=== PATIENT | female | born 1955 | race African-American/Black ===

== ENCOUNTER 2017-01-31 10:08 | Emergency (ER) | payer MEDICAID ==
[2016-04-20 12:10] VITALS: BMI 34.4
[~2017-01-31 10:08] MED LIST: ASPIRIN81 MG PO; CATAPRES0.2 MG PO; COREG12.5 MG PO; COREG25 MG PO; HALDOL5 MG PO; HYDROCHLOROTHIA25 MG GT; HYDROCODONE-APA1 TAB PO; INVEGA6 MG/BLIST PO; ISOSORBIDE MONO30 M1 PO; METOPROLOL TART50 MG PO; NORVASC5 MG PO; PLAVIX75 MG PO; PRINIVIL20 MG PO; SINEQUAN100 MG PO; SONATA5 MG PO; VOLTAREN100 MG PO; WELLBUTRIN100 MG PO; XANAX2 MG PO; ZANTAC150 MG PO
== END 2017-01-31 12:00 | disposition home or self-care (01) ==
LOC: D.ER 10:08
DX: S39.012A Strain of muscle, fascia and tendon of lower back, initial encounter (principal); W19.XXXA Unspecified fall, initial encounter; Y93.89 Activity, other specified; Y92.89 Other specified places as the place of occurrence of the external cause; F31.9 Bipolar disorder, unspecified; I10 Essential (primary) hypertension; Z86.73 Personal history of transient ischemic attack (TIA), and cerebral infarction without residual deficits; C64.9 Malignant neoplasm of unspecified kidney, except renal pelvis; D35.2 Benign neoplasm of pituitary gland; M06.9 Rheumatoid arthritis, unspecified; R00.0 Tachycardia, unspecified

== ENCOUNTER 2017-03-02 13:28 | Emergency (ER) | payer MEDICAID ==
[2016-04-20 12:10] VITALS: BMI 34.4
[2017-03-02 14:58] LABS: BASOPHILS 0.3 % (0-2); EOSINOPHILS 5.5 % (0-7); HEMATOCRIT 39.7 % (36.0-48.0); IMMATURE GRANULOCYTES 0.2 % (0-5); MCH 30.4 pg (26.0-34.0); MCHC 32.7 g/dL (31.0-37.0); MEAN PLATELET VOLUME 9.6 fL (7.4-10.4); MONOCYTES 4.9 % (2-11); NEUTROPHILS 45.1 % (40-80); PLATELET COUNT 273 10x3/uL (130-400); RBC 4.27 10x6/uL (4.00-5.40); RDW 13.1 % (11.5-14.5); WBC 5.9 10x3/uL (4.8-10.8)
[2017-03-02 15:19] LABS: ALBUMIN 3.1 g/dL (3.4-5.0); ALKALINE PHOSPHATASE 126 U/L (46-116); ALT (SGPT) 26 U/L (10-68); CALC OSMOLALITY 290 mosm/kg (275-300); CALCIUM 9.2 mg/dL (8.5-10.1); CARBON DIOXIDE 27.3 mmol/L (21.0-32.0); CHLORIDE - SERUM 109 mmol/L (98-107); CREATININE - SERUM 0.9 mg/dL (0.6-1.3); GLUCOSE 98 mg/dL (74-106); POTASSIUM - SERUM 3.6 mmol/L (3.5-5.1); PROTEIN - SERUM 7.6 g/dL (6.4-8.2); SODIUM 144 mmol/L (136-145); UREA NITROGEN 24 mg/dL (7-18); eGFR NON AFRICAN AMERICAN 67 mL/min (90-120)
[2017-03-02 15:30] LABS: CHOL - HDL RATIO 4.4 ratio (2.3-4.1); CHOLESTEROL, TOTAL 186 mg/dL (0-200); CKMB 0.5 U/L (0.0-3.6); CREATINE KINASE 53 UL (21-215); HDL CHOLESTEROL 42 mg/dL (32-96); LDL CHOLESTEROL 110 mg/dL (0-100); LDL-HDL RATIO 2.6 ratio (1.5-3.5); TRIGLYCERIDE 171 mg/dL (30-200); TROPONIN-I < 0.017 ng/mL (0.000-0.060)
== END 2017-03-02 19:42 | disposition home or self-care (01) ==
LOC: D.ER 13:28
PROVIDERS: Emergency Medicine
DX: R07.9 Chest pain, unspecified (principal); I25.10 Atherosclerotic heart disease of native coronary artery without angina pectoris; I10 Essential (primary) hypertension; F31.89 Other bipolar disorder; R00.0 Tachycardia, unspecified

== ENCOUNTER 2017-03-26 08:10 | Outpatient (CLI) | payer MEDICAID ==
[~2017-03-26] VITALS: Ht 162.6 cm; Wt 81.8 kg
--- NOTE | ~2017-03-26 | OP ---
PATIENT NAME: JOSE DANIEL POWER MEDICAL RECORD: [id number] :55 LOCATION:D.CAT ADMISSION DATE: SURGEON: JOMAR SOLANO MD DATE OF OPERATION: 03/26/2017 PROCEDURES: 1. PTCA stent LAD. 2. Left heart catheterization. 3. Selective coronary angiography. 4. Left ventriculogram. 5. Four-vessel carotid and vertebral angiography. 6. Bilateral selective renal angiography. INDICATION: Angina, coronary artery disease, carotid vascular disease, unsteady gait, renovascular hypertension without renal insufficiency. PROCEDURE IN DETAIL: After informed consent was obtained, after detailed explanation of risks, benefits as well as alternative therapies, the patient elected to proceed with angiogram and angioplasty. The right femoral area was prepped and draped in normal sterile fashion. Right femoral artery was cannulated via modified Seldinger technique with placement of 6-Macedonian sheath. All catheters exchanged through this sheath. FINDINGS: The four-vessel carotid and vertebral angiography was performed with subselection of each subclavian as well as the left carotid. Right side: The common internal and external carotids have mild plaquing, none greater than 10%. No flow-limiting stenosis. Vertebral arteries devoid of disease. Left system: The common internal and external carotids have mild plaquing, none greater than 10%. No flow-limiting stenosis. Vertebral arteries devoid of disease. Bilateral selective renal angiography, each renal artery was sub-selectively engaged. There was no pressure damping or renal artery stenosis of either renal artery. Left ventriculogram was performed in standard 30-degree WYNN view, reveals good cardiac wall motion throughout all segments. Overall ejection fraction 55%. SELECTIVE CORONARY ANGIOGRAPHY: 1. Left main showed no significant angiographic disease. 2. Left anterior descending has previously placed stent with 75% in-stent restenosis just after the diagonal branch. The diagonal stent has no significant restenosis. 3. Left circumflex has moderate irregularities, but no flow-limiting stenosis. 4. Right coronary has moderate irregularities, but no flow-limiting stenosis. PTCA STENT OF THE LAD: The stent used is a 3.0 x 14 mm BioFreedom stent taken to 13 atmospheres. This lesion was in a 3.0 vessel with a 10 mm lesion and MADI 3 flow before and after the intervention. OVERALL IMPRESSION: Successful PTCA stent of the descending going from 75% initial stenosis to 0% residual stenosis with gnosticist of MADI-3 flow. TRANSINT:[id number] Voice Confirmation ID: [id number] DOCUMENT ID: [id number] OPERATIVE REPORT [id number] JOSE DANIEL POWER JEFFREY MD CC: [id number] DICTATION DATE: 03/26/17 1227 CUSTODIAN ATHLETIC EQUIPMENT: 03/26/17 2356 DEP CLI 03/26/17 [place] [id number] [place] [id number]
--- NOTE | ~2017-03-26 | HEMODYNAMI ---
PATIENT:JOSE DANIEL POWER MEDICAL RECORD: [id number] : 55 LOCATION:DCHRISTY ADMISSION DATE: 03/26/17 Generatedon:03/26/201712:28 Patient name: JOSE DANIEL POWER Patient #: [id number] SSN: : Date of study: 03/26/2017 Page: Of Hemodynamic Procedure Report Patient Data Patient Demographics Procedure consent was obtained First Name: JOSE DANIEL Gender: Female Last Name: TONO : 1955 [facility] Initial: ALONDRA Age: 61 year(s) Patient #: [id number] Race: Black Additional ID: [id number] Contact details Address: [address] [place] [address] [address] State: [place] City: [facility] Zip code: [address] Past Medical History Allergies Allergen Reaction Date Comments Reported Codeine 03/06/2016 Other allergy 03/26/2017 CODEINE Admission Admission Data Admission Date: 03/26/2017 Admission Time: 8:10 Admit Source: Other Height (in.): 64 BSA: 1.87 (m2) Height (cm.): 162.56 BMI: 30.96 (kg/m2) Weight (lbs.): 180.36 Weight (kg.): 81.81 Lab Results Lab Result Date: 03/26/2017 Lab Result Time: 10:40 Biochemistry Name Units Result Min Max BUN mg/dl 17 --(---*)-- 7 18 Creatinine mg/dl 0.9 --(-*--)-- 0.6 1.3 CBC Name Units Result Min Max Hematocrit % 41.8 -*(----)-- 42 54 Hemoglobin g/dl 14.2 --(*---)-- 13.5 17.5 Procedure Procedure Types Cath Procedure Diagnostic Procedure LHC LHC w/Coronaries PCI Procedure Coronary Stent Initial Miscellaneous Procedures Moderate Sedation up to 15 minutes Peripheral Cath Diagnostic Procedure Cath Peripheral Four Vessel Arteriogram Renal Arteriogram Procedure Description Procedure Date Procedure Date: 03/26/2017 Procedure Start Time: 12:05 Procedure End Time: 12:27 Procedure Staff Name Function Delta Miller MD Performing Physician Love Aldrich RT Scrub Manuela Broussard RN Nurse Vernon Chaney RT Monitor Procedure Data Cath Procedure Fluoroscopy Diagnostic fluoroscopy Total fluoroscopy Time: 3.7 time: 3.7 min min Contrast Material Contrast Material Type Amount (ml) Isovue 300 112 Entry Location Entry Primary Successful Side Size Upsize Upsize Entry Closure Succes sful Closure Location (Fr) 1 (Fr) 2 (Fr) Remarks Device Remarks Femoral Right 5 Fr 6 Fr Exoseal artery Short Estimated blood loss: 10 ml Diagnostic catheters Device Type Used For End Catheter Placement Cordis 5Fr Pigtail Procedure Catheter (MP) Cordis 5Fr JL 4.0 Procedure Catheter (MP) Cordis 5Fr 3DRC Catheter Procedure (MP) Cordis 5Fr 3DRC Catheter Procedure (MP) Procedure Complications No complications Procedure Medications Medication Administration Route Dosage Oxygen NC 2 l/min Heparin Flush Bag added to field 2 bags (1000units/500ml NS) Lidocaine 2% added to field 20 Fentanyl I.V. 50 mcg Versed I.V. 1 mg Fentanyl I.V. 50 mcg Versed I.V. 1 mg Versed I.V. 0.5 mg Heparin Bolus I.V. 4000 units Integrilin (Bolus I.V. 7.3 ml 2mg/ml) Versed I.V. 0.5 mg Plavix P.O. 600 mg Nitroglycerin SL S.L. 0.4 mg Hemodynamics Rest BSA: 1.87 (m2) HGB: 14.2 (g/dl) O2 Consumption: Estimated: 185.87 (ml/min) O2 Co nsumption indexed: Estimated:99.4 (ml/min/m) Heart Rate: 84 (bpm) Snapshots Pre Cath Intra NCS Post Cath Vital Signs Time Heart Resp SPO2 NIBP (mmHg) Rhythm Pain Sedation Rate (ipm) (%) Status Level (bpm) 11:54:35 81 23 98 177/107(135) NSR 0 (11) 10(A) , No pain 11:59:16 83 22 98 169/103(131) NSR 0 (11) 10(A) , No pain 12:03:53 87 19 99 158/102(140) NSR 0 (11) 9(A) , No pain 12:08:25 87 16 99 153/97(127) NSR 0 (11) 9(A) , No pain 12:12:55 89 16 99 173/108(144) NSR 0 (11) 9(A) , No pain 12:17:30 94 16 100 168/105(140) NSR 0 (11) 9(A) , No pain 12:22:06 92 17 99 174/114(146) NSR 0 (11) 10(A) , No pain 12:26:45 91 18 98 177/117(152) NSR 0 (11) 10(A) , No pain Medications Time Medication Route Dose Verified Delivered Reason Notes Effectiveness by by 11:46:27 Oxygen NC 2 Manuela Manuela used for l/min Broussard Broussard plastic parts designer RN 11:46:35 Heparin Flush added 2 Manuela Manuela used for Bag to bags Broussard Broussard procedure (1000units/500ml field RN RN NS) 11:46:43 Lidocaine 2% added 20ml Manuela Manuela used for to vial Broussard Broussard procedure field RN RN 12:04:06 Fentanyl I.V. 50 Manuela Manuela for sedation mcg Broussard Broussard RN RN 12:04:13 Versed I.V. 1 mg Manuela Manuela for sedation Broussard Broussard RN RN 12:04:45 Fentanyl I.V. 50 Manuela Manuela for sedation mcg Broussard Broussard RN RN 12:04:48 Versed I.V. 1 mg Manuela Manuela for sedation Broussard Broussard RN RN 12:06:05 Versed I.V. 0.5 Manuela Manuela for sedation mg Broussard Broussard RN RN 12:12:34 Integrilin I.V. 7.3 Manuela Manuela for 2.7ml (Bolus 2mg/ml) ml Broussard Broussard anticoagulation integrilin RN RN wasted 12:12:34 Heparin Bolus I.V. 4000 Manuela Manuela for units Broussard Broussard anticoagulation RN RN 12:13:01 Versed I.V. 0.5 Manuela Manuela for sedation mg Broussard Broussard RN RN 12:17:23 Plavix P.O. 600 Manuela Manuela for mg Broussard Broussard antiplatelet RN RN therapy 12:21:03 Nitroglycerin SL S.L. 0.4 Manuela Roy for mg Bobo Broussard hypertension RN basket mender Log Time Note 11:36:37 Vernon Chaney RT(R) sent for patient. Start room use. 11:36:38 Time tracking: Regular hours 11:36:42 Plan of Care:Hemodynamics will remain stable., Cardiac rhythm will remain stable., Comfort level will be maintained., Respiratory function will remain adequate., Patient/ family verbilizes understanding of procedure., Procedure tolerated without complication., Recovers from procedure without complications.. 11:46:27 Oxygen 2 l/min NC was administered by Manuela Broussard RN; used for procedure; 11:46:35 Heparin Flush Bag (1000units/500ml NS) 2 bags added to field was administered by Manuela Broussard RN; used for procedure; 11:46:43 Lidocaine 2% 20ml vial added to field was administered by Manuela Broussard RN; used for procedure; 11:47:48 Patient received from Pre/Post Procedure Room to [facility] 3 Alert and oriented. Tansferred to table in Supine position. 11:47:49 Warm blankets applied, and shalom hugger turned on for patient comfort. 11:47:49 Correct patient and procedure confirmed by team. 11:47:50 Signed procedure consent form obtained from patient. 11:47:51 ECG and BP/O2 sat monitors applied to patient. 11:47:52 Full Disclosure recording started 11:53:06 Vital chart was started 11:59:17 Baseline sample Acquired. 11:59:21 Rhythm: sinus rhythm 11:59:41 H&P Date Dictated: 03/06/2017 Within 30 days and on chart., H&P Addendum completed by physician on day of procedure. (MUST COMPLETE FOR ALL OUTPATIENTS). 11:59:42 Pre-procedure instructions explained to patient. 11:59:43 Pre-op teaching completed and patient verbalized understanding. 11:59:44 Family unavailable. 11:59:45 Patient NPO since Midnight. 12:00:01 Patient allergic to Other allergyCODEINE 12:00:03 Is the patient allergic to Iodine/contrast media? No. 12:00:04 Is patient on blood thinner?Yes 12:00:07 ACC The patient was administered the following blood thiners within the last 24 hours: ACCAspirin 12:00:08 Patient diabetic? No. 12:00:10 Previous problem with sedation/anesthesia? No ? 12:00:11 Snore? Yes 12:00:11 Sleep apnea? Yes 12:00:12 Deviated septum? No 12:00:13 Opens mouth fully? Yes 12:00:14 Sticks out tongue? Yes 12:00:15 Airway obstruction? No ? 12:00:17 Dentures? Yes OUT 12:00:20 Pre procedure: right dorsailis pedis pulse 2+ Normal; easily identifiable; not easily obliterated 12:00:26 Patient pain scale 0/10 ?. 12:00:33 IV patent on arrival in left forearm with 0.9% NaCl at [facility]. 12:01:02 Lab Result : BUN 17 mg/dl 12:: Lab Result : Creatinine 0.9 mg/dl 12::03 Lab Result : Hemoglobin 14.2 g/dl 12:01:03 Lab Result : Hematocrit 41.8 % 12:01:05 Lab results completed and on chart. 12:01:09 Right groin area was prepped with chlora-prep and draped in sterile fashion 12:01:11 Alarms reviewed by R. N. 12:01:11 Sharps counted by scrub and verified by R.N. 12:01:14 Use device set Femoral Dx 12:01:15 Tegaderm 4 x 4 opened to sterile field. 12:01:16 Acist Manifold opened to sterile field. 12:01:17 Acist Hand Control opened to sterile field. 12:01:18 Acist Syringe opened to sterile field. 12:01:18 Bag Decanter opened to sterile field. 12:01:18 Medline Cath Pack opened to sterile field. 12:01:19 Terumo 5Fr Dunnell Sheath opened to sterile field. 12:01:20 St Daren 260cm J .035 wire opened to sterile field. 12:01:21 Diagnostic Infinity 5Fr Multipack catheter opened to sterile field. 12:01:30 Physician arrived 12::30 --------ALL STOP TIME OUT------ 12::30 Final Timeout: patient, procedure, and site verified with staff and physician. All members of the team are in agreement. 12:01:33 Right groin site verified by team. 12:01:36 Physical assessment completed. ASA score P 2 - A patient with mild systemic disease as per Delta Miller MD. 12:01:38 Sedation plan: IV Moderate Sedation Versed, Fentanyl 12:01:46 Patient Height : 162.56 cm 12:01:51 Patient Weight : 81.81 kg 12:01:55 Admit Source: Other 12:04:04 Zero performed for pressure channel P1 12:04:06 Fentanyl 50 mcg I.V. was administered by Manuela Broussard RN; for sedation; 12:04:13 Versed 1 mg I.V. was administered by Manuela Broussard RN; for sedation; 12:04:45 Fentanyl 50 mcg I.V. was administered by Manuela Broussard RN; for sedation; 12:04:48 Versed 1 mg I.V. was administered by Manuela Broussard RN; for sedation; 12:05:04 Procedure started. 12:05:06 Local anesthetic to right femoral artery with Lidocaine 2% by Delta Miller MD.INITIAL ACCESS ONLY 12:05:13 A 5 Fr sheath was inserted into the Right Femoral artery 12:06:05 Versed 0.5 mg I.V. was administered by Manuela Broussard RN; for sedation; 12:07:04 A Cordis 5Fr Pigtail Catheter (MP) was advanced over the wire and used for Procedure. 12:07:07 LV gram done using WYNN 12:07:10 Injector settings: Ml/sec: 10, Volume: 20, 12:07:13 EF : 60 % 12:07:16 Catheter exchanged over wire. 12:07:20 A Cordis 5Fr JL 4.0 Catheter (MP) was advanced over the wire and used for Procedure. 12:07:59 Terumo 6Fr Dunnell Sheath opened to sterile field. 12:08:00 Perez Whisper J 300cm 0.014 guide wire opened to sterile field. 12:08:01 [place] BasixCompak Inflation Kit opened to sterile field. 12:08:12 LCA angiography performed. 12:08:14 Catheter exchanged over wire. 12:08:18 A Cordis 5Fr 3DRC Catheter (MP) was advanced over the wire and used for Procedure. 12:08:40 RCA angiography performed. 12:09:19 Left subclavian angiography performed 12:09:20 Left carotid angiography performed. 12::52 Right subclavian angiography performed 12:09:53 Right carotid angiography performed. 12:10:23 Cordis 6FR XBLAD 3.5 guide catheter opened to sterile field. 12:10:28 Catheter removed. 12:10:38 Sheath upsized to a 6 Fr Short. 12:10:47 6 Fr XBLAD 3.5 guide catheter was inserted over the wire 12:11:49 WHISPER wire advanced. 12:12:33 Wire advanced across lesion. 12:12:34 Heparin Bolus 4000 units I.V. was administered by Manuela Broussard RN; for anticoagulation; 12:12:34 Integrilin (Bolus 2mg/ml) 7.3 ml I.V. was administered by Manuela Broussard RN; for anticoagulation; 2.7ml integrilin wasted 12:13:01 Versed 0.5 mg I.V. was administered by Manuela Broussard RN; for sedation; 12:14:06 Inflation Number: 1 A Biofreedom 3.0 x 14 stent (No Cost Implant) was prepped and advanced across the Mid LAD. The stent was deployed at 15 ROBSON for 0:10 (min:sec). 12:14:34 Stent catheter was removed intact over wire. 12:14:36 Wire removed. 12:14:36 Guide catheter removed. 12:15:34 A Cordis 5Fr 3DRC Catheter () was advanced over the wire and used for Procedure. 12:15:44 Left renal angiography performed. 12:15:45 Right renal angiography performed. 12:16:02 Catheter removed. 12:16:08 Cordis 6Fr Exoseal opened to sterile field. 12:16:16 Sheath removed intact; hemostasis achieved with Exoseal to the Right Femoral artery. 12:16:18 Procedure ended.(Physican Out) 12:17:23 Plavix 600 mg P.O. was administered by Manuela Broussard RN; for antiplatelet therapy; 12:19:58 Fluoroscopy time 03.70 minutes. 12:21:03 Nitroglycerin SL 0.4 mg S.L. was administered by Manuela Broussard RN; for hypertension; 12:21:56 Fluoro Dose Total:1870.52cGy cm2 12:22:29 Contrast amount:Isovue 300 112ml. 12:22:30 Sharps counted by scrub and verified by R.N. 12:22:33 Insertion/operative site no bleeding no hematoma. 12:22:35 Post-op/insertion site Right Femoral artery dressed using a 4 x 4 and Tegaderm. 12:22:38 Post right femoral artery:stable, soft, clean and dry 12::39 Post Procedure Pulses reassessed and unchanged 12:22:42 Post-procedure physical assessment completed. ASA score P 2 - A patient with mild systemic disease as per Delta Miller MD. 12:22:43 Post procedure rhythm: unchanged. 12:22:45 Estimated blood loss: 10 ml 12:22:47 Post procedure instruction explained to patient.Patient verbalizes understanding. 12:22:48 Patient needs reinforcement of post procedure teaching. 12:23:08 Procedure type changed to Cath procedure, Diagnostic procedure, LHC, LHC w/Coronaries, PCI procedure, Coronary Stent Initial, Miscellaneous Procedures, Moderate Sedation up to 15 minutes, Peripheral Cath Diagnostic Procedure, Cath Peripheral, Four Vessel Arteriogram, Renal Arteriogram 12:27:27 Procedure and supply charges have been captured, reviewed, submitted and are correct. 12:27:29 Procedure Complication : No complications 12:27:31 Vital chart was stopped 12:27:32 See physician's report for complete and final results. 12:27:33 Report given to Pre/Post Procedure Room. 12:27:35 Patient transfered to Pre/Post Procedure Room with Stretcher. 12:27:38 Procedure ended. 12:27:38 Full Disclosure recording stopped 12:27:43 End room use (Document Last) Intervention Summary Intervention Notes Time ActionType Lesion and Equipment Action# Pressure Duration Attributes Used 12:14:06 Place stent Mid LAD Biofreedom 1 15 00:10 3.0 x 14 stent (No Cost Implant) Device Usage Item Name Manufacture Quantity Catalog Hospital Part Current Minimal Lot# / Number Charge Number Stock Stock Serial# Code Tegaderm 4 3M 1 [id number] 257140 611180 065462 5 x 4 Acist Acist 1 65556 601249 582576 133476 5 Manifold Medical Systems Inc Acist Hand Acist 1 95254 949584 125637 721738 5 Control Medical Systems Inc Acist Acist 1 87622 873292 479375 842614 20 Syringe Medical Systems Inc Bag Microtek 1 2002S 678759 53231 141519 5 DecVputi. Medline Cardinal 1 [id number] 289380 69749 247398 5 Cath Pack Health Terumo 5Fr Terumo 1 [id number] 419021 623107 730426 [address] Daren 1 201679 974968 117981 093895 30 260cm J .035 wire Diagnostic Cardinal 1 [id number] 711951 37168 221377 30 Infinity Health 5Fr Multipack catheter Cordis 5Fr Cardinal 1 150755 5 Pigtail Health Catheter (MP) Cordis 5Fr Cardinal 1 439186 5 JL 4.0 Health Catheter (MP) Terumo 6Fr Terumo 1 VDX065 433632 522587 307707 40 Dunnell Sheath Perez Perez 1 [id number] 787164 306369 554374 5 Whisper J Vascular 300cm 0.014 guide wire Merit Merit 1 [id number] 919359 175158 863605 15 Sundia MediTech Medical Inflation Kit Cordis 5Fr Cardinal 1 [id number] 5 3DRC Health Catheter (MP) Cordis 6FR Cardinal 1 [id number] 556478 456780 148210 10 XBLAD 3.5 Health guide catheter Biofreedom Biosensors 1 [facility]2-3014 082899 359535 5 [id number] 3.0 x 14 Europe SA stent (No Cost Implant) Cordis 6Fr Cardinal 1 EX600 818235 483019 490838 10 Solar[employer]s Signature Audit [place] Stage Time Signature Unsigned Intra-Procedure 03/26/2017 Vernon Chaney 12:28:03 PM RT(R) Signatures Monitor : Vernon Chaney RT Signature : Date : Time : [facility] [address] [place] [address]
[2017-03-26] MEDS ORDERED: VOLTAREN75 MG PO (09:32)
[2017-03-26] MEDS ORDERED: SINEQUAN100 MG PO (09:33)
[2017-03-26] MEDS ORDERED: NAPROSYN500 MG PO (09:33)
[2017-03-26] MEDS ORDERED: INVEGA9 MG/BLIST PO (09:34)
[2017-03-26] MEDS ORDERED: HALDOL5 MG PO (09:34)
[2017-03-26 09:49] VITALS: BP 185/112; Ht 162.6 cm; Wt 81.8 kg
[2017-03-26 10:52] LABS: BASOPHILS 0.3 % (0-2); EOSINOPHILS 2.8 % (0-7); HEMATOCRIT 41.8 % (36.0-48.0); HEMOGLOBIN 14.2 g/dL (12-16); IMMATURE GRANULOCYTES 0.6 % (0-5); LYMPHOCYTES 33.3 % (15-50); MCV 94.1 fL (80.0-100.0); MEAN PLATELET VOLUME 9.8 fL (7.4-10.4); MONOCYTES 3.6 % (2-11); NEUTROPHILS 59.4 % (40-80); RBC 4.44 10x6/uL (4.00-5.40); RDW 12.7 % (11.5-14.5); WBC 6.8 10x3/uL (4.8-10.8)
[2017-03-26 11:09] LABS: PLATELET COUNT 190 10x3/uL (130-400)
[2017-03-26 11:16] LABS: CALC OSMOLALITY 283 mosm/kg (275-300); CALCIUM 9.1 mg/dL (8.5-10.1); CARBON DIOXIDE 26.9 mmol/L (21.0-32.0); CHLORIDE - SERUM 108 mmol/L (98-107); CKMB 0.3 U/L (0.0-3.6); CREATINE KINASE 68 UL (21-215); CREATININE - SERUM 0.9 mg/dL (0.6-1.3); GLUCOSE 81 mg/dL (74-106); POTASSIUM - SERUM 3.8 mmol/L (3.5-5.1); SODIUM 142 mmol/L (136-145); UREA NITROGEN 17 mg/dL (7-18); eGFR NON AFRICAN AMERICAN 67 mL/min (90-120)
[2017-03-26 11:17] LABS: TROPONIN-I < 0.017 ng/mL (0.000-0.060)
--- NOTE | 2017-03-26 13:00 | NUR ---
RIGHT GROIN CDI, NO HEMATOMA OR BLEEDING NOTED. B/P STILL ELEVATED- PT STATES "ALWAYS RUNS HIGH". DENIES PAIN
[2017-03-26] MEDS ORDERED: PLAVIX75 MG PO (13:05)
--- NOTE | 2017-03-26 13:30 | NUR ---
CLONIDINE 0.2MG GIVEN PO FOR B/P. RIGHT GROIN CDI, NO HEMATOMA OR BLEEDING NOTED, SOFT TO TOUCH
[2017-03-26] MEDS ORDERED: EFFIENT10 MG PO (16:08)
--- NOTE | 2017-03-26 16:30 | NUR ---
IV D'C WITH CATH TIP INTACT, UP TO RESTROOM, VERBAL AND WRITTEN INSTRUCTIONS GIVEN TO PT. AWAITING AUNT FOR RIDE HOME. DENIES CHEST PAIN OR FURTHUR NEEDS
== END 2017-03-26 16:40 | disposition home or self-care (01) ==
LOC: D.CATH 08:10
PROVIDERS: Internal Medicine Interventional Cardiology
DX: I25.119 Atherosclerotic heart disease of native coronary artery with unspecified angina pectoris (principal); T82.855A Stenosis of coronary artery stent, initial encounter; Z00.6 Encounter for examination for normal comparison and control in clinical research program; I65.29 Occlusion and stenosis of unspecified carotid artery; I15.0 Renovascular hypertension; Z01.812 Encounter for preprocedural laboratory examination

== ENCOUNTER 2017-04-23 17:33 | Inpatient (IN) | payer MEDICAID ==
[~2017-04-23] VITALS: Ht 162.6 cm; Wt 81.6 kg
[~2017-04-23 17:33] MED LIST changes: +EFFIENT10 MG PO; +INVEGA9 MG/BLIST PO; +NAPROSYN500 MG PO; +VOLTAREN75 MG PO
[2017-04-23 19:18] LABS: BASOPHILS 0.3 % (0-2); EOSINOPHILS 0.7 % (0-7); HEMATOCRIT 35.8 % (36.0-48.0); HEMOGLOBIN 14.3 g/dL (12-16); IMMATURE GRANULOCYTES 0.2 % (0-5); LYMPHOCYTES 24.5 % (15-50); MCHC 39.9 g/dL (31.0-37.0); MCV 92.5 fL (80.0-100.0); MEAN PLATELET VOLUME 9.5 fL (7.4-10.4); MONOCYTES 5.2 % (2-11); NEUTROPHILS 69.1 % (40-80); PLATELET COUNT 216 10x3/uL (130-400); RBC 3.87 10x6/uL (4.00-5.40); RDW 12.4 % (11.5-14.5); WBC 8.8 10x3/uL (4.8-10.8)
[2017-04-23 19:28] LABS: APTT 25.5 SECONDS (22.8-39.4); INR 1.08 (0.85-1.17); PROTIME 13.9 SECONDS (11.6-15.0)
[2017-04-23 19:54] LABS: ALBUMIN 3.4 g/dL (3.4-5.0); ALKALINE PHOSPHATASE 122 U/L (46-116); ALT (SGPT) 32 U/L (10-68); CALC OSMOLALITY 277 mosm/kg (275-300); CALCIUM 9.3 mg/dL (8.5-10.1); CARBON DIOXIDE 24.8 mmol/L (21.0-32.0); CHLORIDE - SERUM 104 mmol/L (98-107); CREATINE KINASE 68 UL (21-215); CREATININE - SERUM 0.8 mg/dL (0.6-1.3); GLUCOSE 99 mg/dL (74-106); MAGNESIUM - SERUM 1.8 mg/dL (1.8-2.4); POTASSIUM - SERUM 3.8 mmol/L (3.5-5.1); PRO BNP 43 pg/mL (0-125); SODIUM 138 mmol/L (136-145); TROPONIN-I < 0.017 ng/mL (0.000-0.060); UREA NITROGEN 17 mg/dL (7-18); eGFR NON AFRICAN AMERICAN 77 mL/min (90-120)
--- NOTE | 2017-04-23 23:53 | NUR ---
TELE [address] ST
[2017-04-24] VITALS (9 sets, daily range): BP systolic 102–199; BP diastolic 75–125; Ht 162.6 cm; Wt 81.6 kg
--- NOTE | 2017-04-24 02:49 | NUR ---
SPOKE WITH MAURY, HOLE PUNCHER STRAP ABOUT PATIENT'S BP OF 199/125. MAURY AUTHORIZED A CALL TO THE ER TO SPEAK WITH DR. FRANCIS ABOUT MEDS. SPOKE WITH KWAME AND SHE CONFIRMED THAT DR. FRANCIS ORDERED 0.2 CATAPRES Q12HP AND APRESOLINE IV PUSH ONE TIME. I ALSO INFORMED KWAME THAT I HAD ASKED VINCE TO TALK TO THE ER DOCTOR, BEFORE THE PATIENT WAS BROUGHT UP, FOR BP MEDICATION.
--- NOTE | 2017-04-24 04:12 | NUR ---
PATIENT'S BLOOD PRESSURE 171/92. SPOKE WITH VOUCHER CLERK, MAURY. WE WILL CONTINUE TO MONITOR BP BEFORE ADMINISTERING CLONIDINE.
--- NOTE | 2017-04-24 05:02 | NUR ---
ADMINISTERED CLONIDINE FOR 172/100 BP
--- NOTE | 2017-04-24 09:30 | NUR ---
pt b/p 171/112 DR VINCENT ON UNIT ORDER RECIEVED FOR ONE TIME DOSE OF CLONIDINE 0.2 GIVEN PER ORDER
[2017-04-24 10:06] LABS: BASOPHILS 0.3 % (0-2); EOSINOPHILS 0.9 % (0-7); HEMATOCRIT 40.8 % (36.0-48.0); LYMPHOCYTES 34.8 % (15-50); MCH 31.3 pg (26.0-34.0); MCHC 34.3 g/dL (31.0-37.0); MCV 91.3 fL (80.0-100.0); MEAN PLATELET VOLUME 9.3 fL (7.4-10.4); MONOCYTES 5.6 % (2-11); NEUTROPHILS 58.4 % (40-80); RBC 4.47 10x6/uL (4.00-5.40); RDW 12.6 % (11.5-14.5)
[2017-04-24 10:22] LABS: ALBUMIN 2.9 g/dL (3.4-5.0); ALKALINE PHOSPHATASE 125 U/L (46-116); BILIRUBIN - TOTAL 0.51 mg/dL (0.2-1.3); CALC OSMOLALITY 283 mosm/kg (275-300); CALCIUM 8.8 mg/dL (8.5-10.1); CARBON DIOXIDE 27.3 mmol/L (21.0-32.0); CHLORIDE - SERUM 107 mmol/L (98-107); CREATININE - SERUM 0.8 mg/dL (0.6-1.3); GLUCOSE 107 mg/dL (74-106); POTASSIUM - SERUM 3.8 mmol/L (3.5-5.1); PROTEIN - SERUM 7.8 g/dL (6.4-8.2); SODIUM 142 mmol/L (136-145); UREA NITROGEN 15 mg/dL (7-18); eGFR NON AFRICAN AMERICAN 77 mL/min (90-120)
[2017-04-24 10:23] LABS: ALT (SGPT) 78 U/L (10-68)
[2017-04-24 10:25] LABS: PLATELET COUNT 269 10x3/uL (130-400); WBC 6.5 10x3/uL (4.8-10.8)
--- NOTE | 2017-04-24 11:00 | NUR ---
B/P 102/75 MONITORING EVERY 15 MIN AFTER DOSING
--- NOTE | 2017-04-24 11:05 | NUR ---
Rehab Note- The patient has Medicaid and does not have acute rehab benefits. Thank you for this referral! Judy Mayorga RN Clinical Liaison, [facility] Rehab
--- NOTE | 2017-04-24 12:59 | NUR ---
RETURNED FROM MRI B/P 149/98
--- NOTE | 2017-04-24 16:50 | NUR ---
COMPLAINT OF PAIN WILL TREAT PER ORDER CALL LIGHT IN REAC SIDE RAILS UP X 2 BED ALA RM ON
--- NOTE | 2017-04-24 17:33 | NUR ---
OT NOTE: PT COMPLETED GROOMING AND HYGIENE TASKS WITH SET UP. PT COMPLETED BED MOB WITH MIN A . PT COMPLETED BUE AROM FOR INCREASED I WITH ADLS. THANK YOU, ARVIND DANIELS/Anuja
--- NOTE | 2017-04-24 20:00 | NUR ---
STOOD IN ROOM WITH PATIENT SHE GOT TO THE BEDSIDE COMMODE TO URINATE, STAYED WITH HER UNTIL SHE WAS BACK IN BED. PATIENT DID NOT REQUIRE ANY ASSISTANCE. JUAN ANTONIO MAT ALARM ON. BED IN LOWEST POSITION, CALL LIGHT IN REACH. BED RIALS UP X'S 2.
--- NOTE | 2017-04-24 20:30 | NUR ---
AWAKE,ALERT.NO COMPLAINTS VOICED AT PRESENT. SL INTACT TO LAC WITHOUT REDNESS OR EDEMA NOTED. CL IN REACH. JUAN ANTONIO YRN ON.
[2017-04-25] VITALS: BP 117/84
--- NOTE | 2017-04-25 01:52 | NUR ---
RESTING QUIETLY. NO DISTRESS NOTED. CL IN REACH
[2017-04-25 04:00] VITALS: BP 152/83
--- NOTE | 2017-04-25 04:56 | NUR ---
UP TO BSC.BACK TO BED WITH ASSIST.COMPLAINS OF BACK PAIN. DILAUDID PER ORDERS.CL IN REACH.
[2017-04-25 05:57] LABS: BASOPHILS 0.3 % (0-2); EOSINOPHILS 3.4 % (0-7); HEMATOCRIT 39.7 % (36.0-48.0); HEMOGLOBIN 12.9 g/dL (12-16); IMMATURE GRANULOCYTES 0.2 % (0-5); LYMPHOCYTES 44.4 % (15-50); MCH 30.4 pg (26.0-34.0); MCHC 32.5 g/dL (31.0-37.0); MEAN PLATELET VOLUME 9.5 fL (7.4-10.4); MONOCYTES 8.1 % (2-11); NEUTROPHILS 43.6 % (40-80); PLATELET COUNT 263 10x3/uL (130-400); RBC 4.25 10x6/uL (4.00-5.40); RDW 12.7 % (11.5-14.5); WBC 6.2 10x3/uL (4.8-10.8)
[2017-04-25 06:08] LABS: ALBUMIN 2.7 g/dL (3.4-5.0); ANION GAP 12.4 mmol/L (8-16); BILIRUBIN - TOTAL 0.45 mg/dL (0.2-1.3); CALCIUM 8.5 mg/dL (8.5-10.1); CARBON DIOXIDE 28.6 mmol/L (21.0-32.0); CHOL - HDL RATIO 5.6 ratio (2.3-4.1); LDL-HDL RATIO 3.6 ratio (1.5-3.5); PROTEIN - SERUM 7.4 g/dL (6.4-8.2)
[2017-04-25 06:13] LABS: MCV 93.4 fL (80.0-100.0)
--- NOTE | 2017-04-25 07:15 | NUR ---
ASSESSMENT PER FLOW SHEET.PT WITHOUT DISTRESS.STATES PAIN TO BLE 8/10 SCALE. SHE IS WANTING PAIN MED REGIMEN CHANGED.PT STATES SHE TAKES NORCO AT HOME. JUAN ANTONIO MAT IN PLACE AND WORKING.CALL LIGHT IN REACH
[2017-04-25 08:01] VITALS: BP 155/94
--- NOTE | 2017-04-25 10:43 | NUR ---
Patient Name: JOSE DANIEL POWER Admission Status: ER Accout number: [id number] Admission Date: 04-23-2017 : 1955 Admission Diagnosis:WEAKNESS Attending: VINCENZO Current LOS: 2 Anticipated DC Date: 04-27-2017 Planned Disposition: Home Primary Insurance: MEDICAID [place] Discharge Planning Comments: CM MET WITH PATIENT REGARDING D/C NEEDS AND PLANS. PATIENT STATED SHE LIVES WITH HER SISTER (VALERIA) AND FAMILY WILL DRIVE HER HOME AT DISCHARGE. PATIENT HAS NO STEPS OR STAIRS AT HER HOME. PATIENT STATED SHE IS INDEPENDENT WITH HER CARE AND HAS A SHOWER CHAIR AND CANE AT HOME. PATIENT STATED SHE WOULD LIKE A WALKER IF POSSIBLE AT DISCHARGE. PATIENTS PCP IS DR. MORLEY AND USES [facility]. PATIENT REFUSED HOME HEALTH AT THIS TIME. CM WILL CONTINUE TO FOLLOW PATIENT WITH D/C NEEDS AND PLANS. PCP DR. MORLEY [facility]- [phone] JOSÉ ALMANZA (SISTER) [phone] Hitch Technician: Victorina Owen Is the patient Alert and Oriented? Yes 0 * How many steps to enter\exit or inside your home? 0 0 * PCP DR. MORLEY ([facility]) 0 * Pharmacy BUDGET 0 * Preadmission Environment Home with Family 0 * ADLs Independent 0 * Equipment Cane Shower Chair 0 * List name and contact numbers for known caregivers / representatives who currently or will assist patient after discharge: VALERIA ALMANZA (SISTER) [phone] 0 * Community resources currently utilized None 0 * Additional services required to return to the preadmission environment? Yes 0 * Can the patient safely return to the preadmission environment? Yes 0 * Has this patient been hospitalized within the prior 30 days at any hospital? No 0 Grand Total: 0
[2017-04-25 11:54] VITALS: BP 170/88
--- NOTE | 2017-04-25 16:20 | NUR ---
OT NOTE: PT COMPLETED BED MOB WITH MIN/MOD A. PT COMPLETED BUE EXS FOR INCREASED I WITH BED MOB. THANK YOU, ARVIND DANIELS/Anuja
[2017-04-25 16:30] VITALS: BP 177/106
--- NOTE | 2017-04-25 16:50 | NUR ---
OT NOTE: PT LETHARGIC TODAY; STATED THAT SHE WAS NOT FEELING GOOD TODAY; PERFORMED AROM EXS , BUT REFUSED TO GET OUT OF BED STATING THAT SHE FELT TOO BAD
--- NOTE | 2017-04-25 18:41 | NUR ---
SLEEPING WITHOUT DISTRESS.REMAINS WITHOUT CHANGE FROM INITIAL SHIFT ASSESSMENT.CONT PLAN OF CARE
[2017-04-25 19:00] VITALS: BP 184/103
--- NOTE | 2017-04-25 20:32 | NUR ---
AWAKE,ALERT,COMPLAINTS OF BACK PAIN. DILALUDID GIVEN PER ORDERS. CASANOVA. ASSISTED TO BSC WITH MINIMAL ASSIST AND BACK TO BED. CL IN REACH. NO FUTHER COMPLAINTS.
[2017-04-26 04:00] VITALS: BP 163/82
[2017-04-26 05:13] LABS: BASOPHILS 0.4 % (0-2); EOSINOPHILS 3.6 % (0-7); HEMATOCRIT 40.9 % (36.0-48.0); HEMOGLOBIN 13.6 g/dL (12-16); LYMPHOCYTES 42.8 % (15-50); MCH 30.9 pg (26.0-34.0); MCHC 33.3 g/dL (31.0-37.0); MEAN PLATELET VOLUME 9.4 fL (7.4-10.4); NEUTROPHILS 47.2 % (40-80); PLATELET COUNT 245 10x3/uL (130-400); RDW 12.3 % (11.5-14.5); WBC 5.6 10x3/uL (4.8-10.8)
--- NOTE | 2017-04-26 05:33 | NUR ---
AWAKE WITHOUT COMPLAINTS. NO CHANGE IN ASSESSMENT.
[2017-04-26 05:36] LABS: ALBUMIN 2.9 g/dL (3.4-5.0); ANION GAP 11.9 mmol/L (8-16); BILIRUBIN - TOTAL 0.3 mg/dL (0.2-1.3); CALCIUM 9.1 mg/dL (8.5-10.1); CARBON DIOXIDE 29.6 mmol/L (21.0-32.0); POTASSIUM - SERUM 3.5 mmol/L (3.5-5.1); PROTEIN - SERUM 7.6 g/dL (6.4-8.2)
--- NOTE | 2017-04-26 07:30 | NUR ---
ASSESSMENT PER FLOW SHEET.PT WITHOUT DISTRESS.PAIN MEDS ORDERED PER DEC.FALL PREVENTION IN PLACE.JUAN ANTONIO MAT.MONITOR
[2017-04-26 07:52] VITALS: BP 151/100
--- NOTE | 2017-04-26 10:53 | NUR ---
NUTRITION MONITORING & EVAL CHART REVIEWED, PT VISIT. TOLERATING AHA DIET. 50% INTAKE RECENT MEALS. RD FOLLOWING
[2017-04-26 12:23] VITALS: BP 126/86
--- NOTE | 2017-04-26 14:47 | NUR ---
OT NOTE: PERFORMED BED MOB WITH MIN ASSIST FOR SUPINE TO SIT; MIN ASSIST FOR SIT TO STAND; AMBULATED WITH HAND HELD ASSIST TO BATHROOM; TOILETING WITH SPV; SIT TO SUPINE WITH MOD ASSIST SHE REQUIRED ASSIST GETTING FEET INTO BED. TOLERATED SITTING ON EDGE OF BED FOR APPROX 5 MIN BEFORE LIEING DOWN.
--- NOTE | 2017-04-26 14:50 | NUR ---
OT NOTE: PT COMPLETED ADL MOB WITH RW WITH CGA. PT COMPLETED DYNAMIC SITTING BALANCE WITH SBA. PT COMPLETED TOILETING AND HYGIENE TASKS WITH SET UP. THANK YOU, SHERRELL DANIELS
[2017-04-26 15:41] VITALS: BP 154/80
--- NOTE | 2017-04-26 16:17 | NUR ---
RESTING WITHOUT DISTRESS.HAS BEEN WITHOUT NEEDS.CALL LIGHT IN REACH
--- NOTE | 2017-04-26 19:47 | NUR ---
REMAINS WITHOUT NEEDS,WITHOUT CHANGE,CONT PLAN OF CARE
[2017-04-26 20:00] VITALS: BP 162/88
[2017-04-27] VITALS (8 sets, daily range): BP systolic 106–165; BP diastolic 71–110
[2017-04-27 05:24] LABS: BASOPHILS 0.4 % (0-2); EOSINOPHILS 4.2 % (0-7); HEMATOCRIT 39.3 % (36.0-48.0); HEMOGLOBIN 13.1 g/dL (12-16); LYMPHOCYTES 39.6 % (15-50); MCHC 33.3 g/dL (31.0-37.0); MCV 93.1 fL (80.0-100.0); MEAN PLATELET VOLUME 9.5 fL (7.4-10.4); MONOCYTES 8.5 % (2-11); NEUTROPHILS 47.3 % (40-80); PLATELET COUNT 248 10x3/uL (130-400); RBC 4.22 10x6/uL (4.00-5.40); RDW 12.4 % (11.5-14.5); WBC 5.5 10x3/uL (4.8-10.8)
[2017-04-27 05:47] LABS: ALBUMIN 2.9 g/dL (3.4-5.0); ALKALINE PHOSPHATASE 109 U/L (46-116); ALT (SGPT) 43 U/L (10-68); CALC OSMOLALITY 283 mosm/kg (275-300); CALCIUM 9.2 mg/dL (8.5-10.1); CARBON DIOXIDE 30.1 mmol/L (21.0-32.0); CHLORIDE - SERUM 104 mmol/L (98-107); CREATININE - SERUM 0.8 mg/dL (0.6-1.3); GLUCOSE 109 mg/dL (74-106); POTASSIUM - SERUM 3.8 mmol/L (3.5-5.1); PROTEIN - SERUM 7.5 g/dL (6.4-8.2); SODIUM 142 mmol/L (136-145); UREA NITROGEN 13 mg/dL (7-18); eGFR NON AFRICAN AMERICAN 77 mL/min (90-120)
--- NOTE | 2017-04-27 07:35 | NUR ---
PATIENT RECEIVED ALERT IN MID [place]RE[place] POSITION. RESPIRATIONS EVEN AND UNLABORED. SIDE RAILS UP X2. BED IN LOW POSITION. CALL LIGHT IN REACH.
--- NOTE | 2017-04-27 08:36 | NUR ---
PATIENT ALERT IN BED. NO SIGNS OF DISTRESS NOTED. SCHEDULED MEDICATION ADMINISTERED. PATIENT MADE NPO FOR CT SCAN AND AWARE OF THIS. DENIES NEEDS. SIDE RAILS UP X2. BED IN LOW POSITION. CALL LIGHT IN REACH.
--- NOTE | 2017-04-27 11:00 | NUR ---
C/O PAIN 07/24. DILAUDID ADMINISTERED SLOW IVP PER PRN ORDER. ASSISTED BACK TO BED AND POSITIONED FOR COMFORT. JUAN ANTONIO ALARM ON. CALL LIGHT IN REACH. SIDE RAILS UP X2. BED IN LOW POSITION. CALL LIGHT IN REACH.
--- NOTE | 2017-04-27 15:01 | NUR ---
PATIENT ASSISTED UP TO BED FROM BSC ASSIST X1. POSITIONED FOR COMFORT. WELL TOLERATED. JUAN ANTONIO ALARM ON. SIDE RAILS UP X2. BED IN LOW POSITION. CALL LIGHT IN REACH.
--- NOTE | 2017-04-27 16:21 | NUR ---
OT NOTE: PT COMPLETED BED POSITIONING FOR INCREASED SAFETY WITH EATING. PT COMPLETED GROOMING WITH SET UP. PT COMPLETED BUE AROM/FM SKILLS FOR INCREASED I WITH ADLS. THANK YOU, ARVIND DANIELS/Anuja
--- NOTE | 2017-04-27 18:00 | NUR ---
ALERT IN BED RESTING QUIETLY. RESPIRATIONS EVEN AND UNLABORED. SIDE RAILS UP X2. BED IN LOW POSITION. CALL LIGHT IN REACH. JUAN ANTONIO ALARM ON.
[2017-04-28] VITALS: BP 94/60
[2017-04-28 04:00] VITALS: BP 122/74
--- NOTE | 2017-04-28 04:04 | NUR ---
ASSESSED AT THE BEGINNING OF THE SHIFT. PT IS ALERT AND ORIENTED, ABLE TO VERBALIZE NEEDS. SHE IS ABLE TO TURN AND REPOSTION HERSELF FOR COMFORT AND SKIN CARE. WE ARE ASSISTING HER UP TO THE BEDSIDE COMMODE NEEDED. MOST OF HER PAIN COMPLAINTS OF PAIN ARE ON HER RIGHT KNEE. SHE HAS RECEIVED PAIN MEDS ORDERED. THE BED IS LOW, RAILS UP X'S 2 WITH THE CALL LIGHT AT HAND AND BED ALARM IN PLACE.
[2017-04-28 05:58] LABS: BASOPHILS 0.3 % (0-2); HEMATOCRIT 38.8 % (36.0-48.0); HEMOGLOBIN 12.9 g/dL (12-16); IMMATURE GRANULOCYTES 0.2 % (0-5); LYMPHOCYTES 39.9 % (15-50); MCH 31.2 pg (26.0-34.0); MCHC 33.2 g/dL (31.0-37.0); MCV 93.9 fL (80.0-100.0); MEAN PLATELET VOLUME 9.5 fL (7.4-10.4); MONOCYTES 8.1 % (2-11); NEUTROPHILS 47.5 % (40-80); PLATELET COUNT 275 10x3/uL (130-400); RBC 4.13 10x6/uL (4.00-5.40); RDW 12.5 % (11.5-14.5); WBC 6.3 10x3/uL (4.8-10.8)
[2017-04-28 06:28] LABS: ALBUMIN 2.8 g/dL (3.4-5.0); ANION GAP 13.3 mmol/L (8-16); BILIRUBIN - TOTAL 0.4 mg/dL (0.2-1.3); CALCIUM 9.5 mg/dL (8.5-10.1); CARBON DIOXIDE 28.5 mmol/L (21.0-32.0); POTASSIUM - SERUM 3.8 mmol/L (3.5-5.1); PROTEIN - SERUM 7.3 g/dL (6.4-8.2)
[2017-04-28 06:33] LABS: CREATININE - SERUM 1.1 mg/dL (0.6-1.3)
--- NOTE | 2017-04-28 07:00 | NUR ---
REPORT RECIEVED ASSUMED CARE. PATIENT IN BED WITH IV INTACT. NO COMPLAINTS AT THIS TIME. CALL LIGHT WITHIN REACH.
[2017-04-28 08:23] VITALS: BP 109/73
--- NOTE | 2017-04-28 08:30 | NUR ---
PATIENT IN BED WITH EYES CLOSED RESTING QUIETLY. NO COMPLAINTS OR SIGNS OF DISTRESS. CALL JAYLEEN BARNES.
[2017-04-28 12:01] VITALS: BP 110/68
--- NOTE | 2017-04-28 17:15 | NUR ---
PATIENT RECIEVED DILAUDID IVP SLOWLY OVER 2 MINUTES. NO COMPLAINTS. IV INTACT. CALL LIGHT WITHIN REACH.
[2017-04-28 20:00] VITALS: BP 121/82
[2017-04-29] VITALS: BP 113/78
[2017-04-29 04:00] VITALS: BP 120/69; BP 134/79
[2017-04-29 04:39] LABS: BASOPHILS 0.2 % (0-2); EOSINOPHILS 4.1 % (0-7); HEMATOCRIT 40.8 % (36.0-48.0); HEMOGLOBIN 13.6 g/dL (12-16); IMMATURE GRANULOCYTES 0.2 % (0-5); LYMPHOCYTES 35.7 % (15-50); MCH 31.3 pg (26.0-34.0); MCHC 33.3 g/dL (31.0-37.0); MEAN PLATELET VOLUME 9.6 fL (7.4-10.4); NEUTROPHILS 52.8 % (40-80); PLATELET COUNT 281 10x3/uL (130-400); RBC 4.34 10x6/uL (4.00-5.40); RDW 12.3 % (11.5-14.5); WBC 6.6 10x3/uL (4.8-10.8)
[2017-04-29 04:56] LABS: ANION GAP 11.1 mmol/L (8-16); BILIRUBIN - TOTAL 0.45 mg/dL (0.2-1.3); CALCIUM 9.4 mg/dL (8.5-10.1); CARBON DIOXIDE 31.4 mmol/L (21.0-32.0); POTASSIUM - SERUM 3.5 mmol/L (3.5-5.1); PROTEIN - SERUM 7.7 g/dL (6.4-8.2)
--- NOTE | 2017-04-29 07:00 | NUR ---
REPORT RECIEVED ASSUMED CARE. PATIENT IN BED WITH IV INTACT. NO COMPLAINTS. CALL LIGHT WITHIN REACH.
[2017-04-29 08:24] VITALS: BP 141/74
[2017-04-29] MEDS ORDERED: LISINOPRIL10 MG PO (10:02)
[2017-04-29] MEDS ORDERED: PRAVACHOL20 MG PO (10:03)
[2017-04-29] MEDS ORDERED: HCTZ25 MG PO (10:04)
--- NOTE | 2017-04-29 13:00 | NUR ---
PATIENT RECIEVED DC INSTRUCTIONS. VERBALIZED UNDERSTANDING. NO QUESTIONS AT THIS TIME. IV REMOVED WITH CATH TIP INTACT. PATIENTS FAMILY ESCORTED PATIENT DOWN TO PRIVATE VEHICLE VIA WC WITH PERSONAL BELONGINGS.
--- NOTE | 2017-04-29 13:55 | NUR ---
Late Entry 1000 Cm spoke with the patient this AM. DR Hernandez had requested home health for SN/ Physical therapy. CM advised the patient. She accepted h/h recommendation. patient had home health approximately 5 years ago after orthopedic surgery. She could not recall the provider. CM reviewed providers. She felt [facility] may have been the provider as it was [facility] previously[facility] She wanted her walker from the [employer] [facility] [employer]. They are not available on the weekend. Walker was ordered from [facility] as next choice. POC form signed for home health. TC to [facility] and spoke with [employer] regarding the walker. Faxed face sheet, MD order, H/P, physical therapy note and neurology consult to [facility]. [employer] spoke with the patient. She requested the walker be taken to her home. TC to [facility]. spoke with the on-call nurse, ALINE. Faxed face sheet, order , H/P. neuro consult, physical therapy notes and discharge instruction to [phone]. [place] will advise patient of visit date. ERICA advised patient she would be notified.
== END 2017-04-29 14:00 | disposition home health service (06) | DRG 65 ==
LOC: D.ER 17:33 → D.MS 23:21
PROVIDERS: Emergency Medicine; ADMIT Emergency Medicine
DX: I63.9 Cerebral infarction, unspecified (principal); F17.203 Nicotine dependence unspecified, with withdrawal; R53.1 Weakness; R29.810 Facial weakness; R47.9 Unspecified speech disturbances; R20.9 Unspecified disturbances of skin sensation; M25.562 Pain in left knee; W19.XXXA Unspecified fall, initial encounter; I10 Essential (primary) hypertension; E66.9 Obesity, unspecified; I25.10 Atherosclerotic heart disease of native coronary artery without angina pectoris; K21.9 Gastro-esophageal reflux disease without esophagitis; F20.9 Schizophrenia, unspecified; F31.9 Bipolar disorder, unspecified; F41.9 Anxiety disorder, unspecified; J45.909 Unspecified asthma, uncomplicated; Z68.30 Body mass index [BMI] 30.0-30.9, adult

== ENCOUNTER 2017-10-24 03:53 | Emergency (ER) | payer MEDICAID ==
[2017-04-24 12:32] VITALS: BMI 30.9
[~2017-10-24 03:53] MED LIST changes: +HCTZ25 MG PO; +LISINOPRIL10 MG PO; +PRAVACHOL20 MG PO
[2017-10-24 04:25] LABS: BASOPHILS 0.2 % (0-2); EOSINOPHILS 0.8 % (0-7); HEMATOCRIT 43.3 % (36.0-48.0); HEMOGLOBIN 15.4 g/dL (12-16); IMMATURE GRANULOCYTES 0.2 % (0-5); LYMPHOCYTES 41.2 % (15-50); MCH 31.9 pg (26.0-34.0); MCHC 35.6 g/dL (31.0-37.0); MCV 89.6 fL (80.0-100.0); MEAN PLATELET VOLUME 9.5 fL (7.4-10.4); MONOCYTES 7.2 % (2-11); NEUTROPHILS 50.4 % (40-80); RBC 4.83 10x6/uL (4.00-5.40); RDW 12.4 % (11.5-14.5)
[2017-10-24 04:26] LABS: PLATELET COUNT 348 10x3/uL (130-400)
[2017-10-24 04:45] LABS: ALBUMIN 3.2 g/dL (3.4-5.0); ALKALINE PHOSPHATASE 118 U/L (46-116); ALT (SGPT) 31 U/L (10-68); CALC OSMOLALITY 276 mosm/kg (275-300); CALCIUM 8.9 mg/dL (8.5-10.1); CARBON DIOXIDE 30.5 mmol/L (21.0-32.0); CHLORIDE - SERUM 99 mmol/L (98-107); GLUCOSE 112 mg/dL (74-106); PROTEIN - SERUM 8.1 g/dL (6.4-8.2); SODIUM 137 mmol/L (136-145); UREA NITROGEN 18 mg/dL (7-18); eGFR NON AFRICAN AMERICAN 59 mL/min (90-120)
[2017-10-24 04:48] LABS: POTASSIUM - SERUM 2.9 mmol/L (3.5-5.1)
[2017-10-24 04:58] LABS: CHOL - HDL RATIO 4.3 ratio (2.3-4.1); CHOLESTEROL, TOTAL 190 mg/dL (0-200); CKMB 0.3 U/L (0.0-3.6); CREATINE KINASE 72 UL (21-215); HDL CHOLESTEROL 44 mg/dL (32-96); LDL CHOLESTEROL 115 mg/dL (0-100); LDL-HDL RATIO 2.6 ratio (1.5-3.5); TRIGLYCERIDE 159 mg/dL (30-200); TROPONIN-I < 0.017 ng/mL (0.000-0.060)
[2017-10-24 06:06] LABS: MAGNESIUM - SERUM 1.9 mg/dL (1.8-2.4)
== END 2017-10-24 06:39 | disposition home or self-care (01) ==
LOC: D.ER 03:53
PROVIDERS: Emergency Medicine
DX: R07.9 Chest pain, unspecified (principal); E87.6 Hypokalemia; J18.9 Pneumonia, unspecified organism; Z86.73 Personal history of transient ischemic attack (TIA), and cerebral infarction without residual deficits; I10 Essential (primary) hypertension; F17.200 Nicotine dependence, unspecified, uncomplicated

== ENCOUNTER 2017-11-04 04:00 | Emergency (ER) | payer MEDICAID ==
[2017-04-24 12:32] VITALS: BMI 30.9
[2017-11-04 05:03] LABS: APPEARANCE HAZY (CLEAR); BACTERIA MANY /hpf (NONE SEEN); BILIRUBIN NEGATIVE (NEGATIVE); COLOR YELLOW (YELLOW); EPITHELIAL CELLS RARE /hpf (0-5); GLUCOSE NEGATIVE (NEGATIVE); KETONE NEGATIVE (NEGATIVE); NITRITE NEGATIVE (NEGATIVE); PROTEIN NEGATIVE (NEGATIVE); RED CELLS - URINE 0-5 /hpf (0-5); UROBILINOGEN NORMAL (NORMAL); WHITE CELLS - URINE 25-50 /hpf (0-5)
[2017-11-04 05:13] LABS: UDS - AMPHET NEGATIVE QUAL (NEGATIVE); UDS - BARB NEGATIVE QUAL (NEGATIVE); UDS - BENZO POSITIVE QUAL (NEGATIVE); UDS - COCAINE NEGATIVE QUAL (NEGATIVE); UDS - OPIATE NEGATIVE QUAL (NEGATIVE); UDS - PCP NEGATIVE QUAL (NEGATIVE); UDS - THC POSITIVE QUAL (NEGATIVE)
[2017-11-04 05:19] LABS: BASOPHILS 0.3 % (0-2); EOSINOPHILS 1.3 % (0-7); HEMATOCRIT 42.9 % (36.0-48.0); IMMATURE GRANULOCYTES 0.1 % (0-5); LYMPHOCYTES 41.3 % (15-50); MCH 30.9 pg (26.0-34.0); MCV 88.3 fL (80.0-100.0); MEAN PLATELET VOLUME 9.4 fL (7.4-10.4); MONOCYTES 5.4 % (2-11); NEUTROPHILS 51.6 % (40-80); PLATELET COUNT 310 10x3/uL (130-400); RBC 4.86 10x6/uL (4.00-5.40); RDW 12.2 % (11.5-14.5); WBC 7.6 10x3/uL (4.8-10.8)
[2017-11-04 05:46] LABS: ALBUMIN 3.1 g/dL (3.4-5.0); ANION GAP 11.6 mmol/L (8-16); BILIRUBIN - TOTAL 0.3 mg/dL (0.2-1.3); CARBON DIOXIDE 28.4 mmol/L (21.0-32.0); CREATININE - SERUM 0.9 mg/dL (0.6-1.3); PROTEIN - SERUM 7.2 g/dL (6.4-8.2)
[2017-11-04 05:53] LABS: THYROID STIMULATING HORMONE 0.02 uIU/mL (0.36-3.74)
== END 2017-11-04 06:30 | disposition home or self-care (01) ==
LOC: D.ER 04:00
PROVIDERS: Emergency Medicine
DX: Z86.59 Personal history of other mental and behavioral disorders (principal); E87.6 Hypokalemia; F12.10 Cannabis abuse, uncomplicated; N39.0 Urinary tract infection, site not specified; Z86.73 Personal history of transient ischemic attack (TIA), and cerebral infarction without residual deficits; I10 Essential (primary) hypertension; F17.200 Nicotine dependence, unspecified, uncomplicated

== ENCOUNTER 2017-12-06 17:54 | Inpatient (IN) | payer MEDICAID ==
[~2017-12-06] VITALS: Ht 177.8 cm; Wt 87.7 kg
--- NOTE | ~2017-12-06 | CN ---
PATIENT NAME:JOSE DANIEL POWER MEDICAL RECORD: [id number] : 55 LOCATION:. D.2123 ADMIT DATE: 12/08/17 ACCOUNT: [id number] CONSULTING PHYSICIAN: CURRY GREWAL III, MD REFERRING PHYSICIAN: ALINE SEGUNDO MD DATE OF CONSULTATION: 12/10/2017 FINDINGS: This is a 62-year-old -[place] female who was admitted on 12/08/2017 following apparent stroke-like symptoms. Admission diagnosis included reported unintentional benzodiazepine overdose. The patient does have a past history of schizophrenia and is followed on an outpatient basis. She is maintained on a combination of Haldol, Invega, p.r.n. Xanax, and Wellbutrin. The patient has in the past been followed through [facility] to the best of my knowledge. At the time of admission, the patient's drug screen was positive for benzodiazepines and THC. However, it was not possible to quantify the exact amount of benzodiazepine that she may have taken. On interview today, the patient is much more alert. She is cooperative with examination, relates well to the examiner. She very firmly denies that she has any intent to harm herself. She says she hope she can go home soon. MENTAL STATUS EXAM: On exam, the patient's mood is pleasant. Affect is somewhat constricted. Speech shows mild dysarthria. Content of thought is negative for suicidal ideation or overt psychosis. The patient is oriented to person, place, month, and year. Short-term recall show some moderate difficulties as well as concentration and long-term recall and intermediate recall are fair. DIAGNOSTIC IMPRESSION: AXIS I: Schizophrenia -- chronic, generalized anxiety. PLAN: The patient is not currently suicidal. I think she can continue to be managed medically and sent home when medically stable with follow up at her outpatient clinic. TRANSINT:[id number] Voice Confirmation ID: [id number] DOCUMENT ID: [id number] CURRY GREWAL III, MD at 0919 CC: [id number] DICTATION DATE: 12/10/17 1206 DOPE FIRER: 12/10/17 1319 DIS IN 12/10/17 [place] [address]
[2017-12-06 19:23] LABS: BASOPHILS 0.1 % (0-2); EOSINOPHILS 0.1 % (0-7); HEMATOCRIT 45.4 % (36.0-48.0); HEMOGLOBIN 15.9 g/dL (12-16); IMMATURE GRANULOCYTES 0.1 % (0-5); LYMPHOCYTES 22.1 % (15-50); MCH 31.2 pg (26.0-34.0); MEAN PLATELET VOLUME 9.7 fL (7.4-10.4); MONOCYTES 3.9 % (2-11); NEUTROPHILS 73.7 % (40-80); PLATELET COUNT 315 10x3/uL (130-400); RDW 12.2 % (11.5-14.5); WBC 8.3 10x3/uL (4.8-10.8)
[2017-12-06 19:45] LABS: ALBUMIN 3.7 g/dL (3.4-5.0); ANION GAP 15.7 mmol/L (8-16); BILIRUBIN - TOTAL 0.63 mg/dL (0.2-1.3); CALCIUM 9.9 mg/dL (8.5-10.1); CARBON DIOXIDE 29.4 mmol/L (21.0-32.0); CREATININE - SERUM 1.1 mg/dL (0.6-1.3); POTASSIUM - SERUM 3.1 mmol/L (3.5-5.1); PROTEIN - SERUM 8.6 g/dL (6.4-8.2)
[2017-12-06 20:10] LABS: APPEARANCE HAZY (CLEAR); BILIRUBIN NEGATIVE (NEGATIVE); COLOR YELLOW (YELLOW); GLUCOSE NEGATIVE (NEGATIVE); KETONE NEGATIVE (NEGATIVE); NITRITE NEGATIVE (NEGATIVE); PROTEIN NEGATIVE (NEGATIVE); SPECIFIC GRAVITY 1.015 (1.005-1.020); UROBILINOGEN NORMAL (NORMAL)
[2017-12-06 20:17] LABS: UDS - AMPHET NEGATIVE QUAL (NEGATIVE); UDS - BARB NEGATIVE QUAL (NEGATIVE); UDS - BENZO POSITIVE QUAL (NEGATIVE); UDS - COCAINE NEGATIVE QUAL (NEGATIVE); UDS - OPIATE NEGATIVE QUAL (NEGATIVE); UDS - PCP NEGATIVE QUAL (NEGATIVE); UDS - THC POSITIVE QUAL (NEGATIVE)
[2017-12-07 01:44] VITALS: BP 126/76; Ht 177.8 cm; Wt 87.7 kg
[2017-12-07 04:51] VITALS: BP 119/73
[2017-12-07 07:28] VITALS: BP 97/63
[2017-12-07 11:27] VITALS: BP 100/64
[2017-12-07 15:00] VITALS: BP 110/61
[2017-12-07 16:25] LABS: APPEARANCE CLEAR (CLEAR); BILIRUBIN NEGATIVE (NEGATIVE); COLOR YELLOW (YELLOW); GLUCOSE NEGATIVE (NEGATIVE); KETONE NEGATIVE (NEGATIVE); NITRITE NEGATIVE (NEGATIVE); PROTEIN NEGATIVE (NEGATIVE); UROBILINOGEN NORMAL (NORMAL)
[2017-12-07 16:26] LABS: RED CELLS - URINE 25-50 /hpf (0-5)
[2017-12-07 16:27] LABS: BACTERIA MODERATE /hpf (NONE SEEN); EPITHELIAL CELLS 0-5 /hpf (0-5)
[2017-12-07 20:00] VITALS: BP 133/90
[2017-12-08 00:51] VITALS: BP 148/91
[2017-12-08 03:59] LABS: BASOPHILS 0.2 % (0-2); EOSINOPHILS 1.1 % (0-7); HEMATOCRIT 36.9 % (36.0-48.0); HEMOGLOBIN 12.9 g/dL (12-16); LYMPHOCYTES 39.2 % (15-50); MCH 30.8 pg (26.0-34.0); MCV 88.1 fL (80.0-100.0); MEAN PLATELET VOLUME 9.6 fL (7.4-10.4); NEUTROPHILS 53.5 % (40-80); PLATELET COUNT 279 10x3/uL (130-400); RBC 4.19 10x6/uL (4.00-5.40); RDW 12.2 % (11.5-14.5)
[2017-12-08 04:13] LABS: ALKALINE PHOSPHATASE 95 U/L (46-116); ALT (SGPT) 42 U/L (10-68); BILIRUBIN - TOTAL 0.62 mg/dL (0.2-1.3); CALC OSMOLALITY 278 mosm/kg (275-300); CALCIUM 8.6 mg/dL (8.5-10.1); CARBON DIOXIDE 29.4 mmol/L (21.0-32.0); CHLORIDE - SERUM 100 mmol/L (98-107); GLUCOSE 102 mg/dL (74-106); SODIUM 137 mmol/L (136-145); UREA NITROGEN 27 mg/dL (7-18)
[2017-12-08 04:22] LABS: CREATININE - SERUM 0.8 mg/dL (0.6-1.3); eGFR NON AFRICAN AMERICAN 77 mL/min (90-120)
[2017-12-08 04:23] LABS: ALBUMIN 2.6 g/dL (3.4-5.0); POTASSIUM - SERUM 2.7 mmol/L (3.5-5.1)
[2017-12-08 04:32] VITALS: BP 129/70
[2017-12-08 07:54] VITALS: BP 136/70
[2017-12-08 11:28] VITALS: BP 132/82
[2017-12-08 15:22] VITALS: BP 155/94
[2017-12-08 19:00] VITALS: BP 186/94
[2017-12-09] VITALS: BP 195/111
[2017-12-09 04:00] VITALS: BP 152/97
[2017-12-09 04:30] LABS: BASOPHILS 0.1 % (0-2); EOSINOPHILS 1.4 % (0-7); HEMATOCRIT 34.5 % (36.0-48.0); IMMATURE GRANULOCYTES 0.1 % (0-5); LYMPHOCYTES 37.6 % (15-50); MCH 30.8 pg (26.0-34.0); MCHC 34.8 g/dL (31.0-37.0); MCV 88.5 fL (80.0-100.0); MEAN PLATELET VOLUME 9.5 fL (7.4-10.4); MONOCYTES 5.7 % (2-11); NEUTROPHILS 55.1 % (40-80); PLATELET COUNT 243 10x3/uL (130-400); RDW 11.9 % (11.5-14.5)
[2017-12-09 04:53] LABS: ALBUMIN 2.4 g/dL (3.4-5.0); ALKALINE PHOSPHATASE 86 U/L (46-116); ALT (SGPT) 32 U/L (10-68); CALCIUM 7.7 mg/dL (8.5-10.1); CARBON DIOXIDE 26.9 mmol/L (21.0-32.0); CHLORIDE - SERUM 106 mmol/L (98-107); CREATININE - SERUM 0.6 mg/dL (0.6-1.3); GLUCOSE 89 mg/dL (74-106); POTASSIUM - SERUM 3.3 mmol/L (3.5-5.1); PROTEIN - SERUM 6.4 g/dL (6.4-8.2); SODIUM 141 mmol/L (136-145); eGFR NON AFRICAN AMERICAN > 90 mL/min (90-120)
[2017-12-09 04:57] LABS: CALC OSMOLALITY 280 mosm/kg (275-300); UREA NITROGEN 14 mg/dL (7-18)
[2017-12-09 08:24] VITALS: BP 179/99
[2017-12-09 11:36] VITALS: BP 136/80
[2017-12-09 15:41] VITALS: BP 139/89
[2017-12-09 20:00] VITALS: BP 120/68
[2017-12-10] VITALS: BP 135/81
[2017-12-10 04:00] VITALS: BP 130/76
[2017-12-10 05:07] LABS: BASOPHILS 0.1 % (0-2); EOSINOPHILS 2.8 % (0-7); HEMATOCRIT 34.8 % (36.0-48.0); HEMOGLOBIN 12.1 g/dL (12-16); LYMPHOCYTES 37.5 % (15-50); MCH 30.8 pg (26.0-34.0); MCHC 34.8 g/dL (31.0-37.0); MCV 88.5 fL (80.0-100.0); MEAN PLATELET VOLUME 9.2 fL (7.4-10.4); MONOCYTES 5.3 % (2-11); NEUTROPHILS 54.3 % (40-80); PLATELET COUNT 245 10x3/uL (130-400); RBC 3.93 10x6/uL (4.00-5.40); RDW 11.9 % (11.5-14.5); WBC 7.5 10x3/uL (4.8-10.8)
[2017-12-10 05:35] LABS: ALBUMIN 2.4 g/dL (3.4-5.0); ALKALINE PHOSPHATASE 99 U/L (46-116); ALT (SGPT) 27 U/L (10-68); BILIRUBIN - TOTAL 0.42 mg/dL (0.2-1.3); CALC OSMOLALITY 281 mosm/kg (275-300); CALCIUM 8.8 mg/dL (8.5-10.1); CARBON DIOXIDE 27.7 mmol/L (21.0-32.0); CHLORIDE - SERUM 106 mmol/L (98-107); GLUCOSE 89 mg/dL (74-106); POTASSIUM - SERUM 3.3 mmol/L (3.5-5.1); PROTEIN - SERUM 6.2 g/dL (6.4-8.2); SODIUM 142 mmol/L (136-145); UREA NITROGEN 13 mg/dL (7-18); eGFR NON AFRICAN AMERICAN 77 mL/min (90-120)
[2017-12-10 05:36] LABS: CREATININE - SERUM 0.8 mg/dL (0.6-1.3)
[2017-12-10 07:48] VITALS: BP 126/73
[2017-12-10 10:38] VITALS: BP 128/76
[2017-12-10 14:56] VITALS: BP 131/61
== END 2017-12-10 19:38 | disposition home or self-care (01) | DRG 917 ==
LOC: D.ER 17:54 → D.EDHOLD 22:04 → D.M2 22:04 → OBSVTIME 22:05 → D.M2 23:48
PROVIDERS: Emergency Medicine
DX: T42.4X1A Poisoning by benzodiazepines, accidental (unintentional), initial encounter (principal); G92 Toxic encephalopathy; N39.0 Urinary tract infection, site not specified; E87.6 Hypokalemia; F20.9 Schizophrenia, unspecified; F31.9 Bipolar disorder, unspecified; R40.2243 Coma scale, best verbal response, confused conversation, at hospital admission; R40.2363 Coma scale, best motor response, obeys commands, at hospital admission; R40.2133 Coma scale, eyes open, to sound, at hospital admission; I25.10 Atherosclerotic heart disease of native coronary artery without angina pectoris; I10 Essential (primary) hypertension

== ENCOUNTER 2018-01-06 11:37 | Emergency (ER) | payer MEDICAID ==
[2017-12-07 01:44] VITALS: BMI 28.7
[2018-01-06 12:21] LABS: BASOPHILS 0.1 % (0-2); EOSINOPHILS 1.3 % (0-7); HEMATOCRIT 40.9 % (36.0-48.0); HEMOGLOBIN 14.3 g/dL (12-16); IMMATURE GRANULOCYTES 0.1 % (0-5); LYMPHOCYTES 41.5 % (15-50); MCH 31.6 pg (26.0-34.0); MCV 90.5 fL (80.0-100.0); MEAN PLATELET VOLUME 9.1 fL (7.4-10.4); MONOCYTES 4.8 % (2-11); NEUTROPHILS 52.2 % (40-80); RBC 4.52 10x6/uL (4.00-5.40); RDW 12.3 % (11.5-14.5); WBC 7.7 10x3/uL (4.8-10.8)
[2018-01-06 12:23] LABS: PLATELET COUNT 327 10x3/uL (130-400)
[2018-01-06 12:25] LABS: APTT 27.3 SECONDS (22.8-39.4); INR 1.04 (0.85-1.17); PROTIME 13.2 SECONDS (11.6-15.0)
[2018-01-06 12:26] LABS: APPEARANCE CLEAR (CLEAR); BILIRUBIN NEGATIVE (NEGATIVE); COLOR YELLOW (YELLOW); GLUCOSE NEGATIVE (NEGATIVE); KETONE NEGATIVE (NEGATIVE); NITRITE NEGATIVE (NEGATIVE); PROTEIN NEGATIVE (NEGATIVE); UROBILINOGEN NORMAL (NORMAL)
[2018-01-06 12:31] LABS: ALBUMIN 3.1 g/dL (3.4-5.0); ALKALINE PHOSPHATASE 113 U/L (46-116); ALT (SGPT) 33 U/L (10-68); CALC OSMOLALITY 286 mosm/kg (275-300); CALCIUM 9.2 mg/dL (8.5-10.1); CARBON DIOXIDE 29.1 mmol/L (21.0-32.0); CHLORIDE - SERUM 104 mmol/L (98-107); CREATININE - SERUM 0.9 mg/dL (0.6-1.3); GLUCOSE 99 mg/dL (74-106); POTASSIUM - SERUM 3.4 mmol/L (3.5-5.1); PROTEIN - SERUM 8.1 g/dL (6.4-8.2); SODIUM 143 mmol/L (136-145); UREA NITROGEN 17 mg/dL (7-18); eGFR NON AFRICAN AMERICAN 67 mL/min (90-120)
[2018-01-06 12:43] LABS: CKMB 0.2 U/L (0.0-3.6); CREATINE KINASE 44 UL (21-215); TROPONIN-I < 0.017 ng/mL (0.000-0.060)
== END 2018-01-06 18:00 | disposition home or self-care (01) ==
LOC: D.ER 11:37
PROVIDERS: Family Medicine
DX: I63.9 Cerebral infarction, unspecified (principal)

== ENCOUNTER 2018-06-13 12:09 | Emergency (ER) | payer MEDICAID ==
[2018-06-13 12:18] VITALS: Ht 177.8 cm
[2018-06-13 13:02] LABS: ALBUMIN 2.9 g/dL (3.4-5.0); ALKALINE PHOSPHATASE 106 U/L (46-116); ALT (SGPT) 20 U/L (10-68); BILIRUBIN - TOTAL 0.24 mg/dL (0.2-1.3); CALC OSMOLALITY 283 mosm/kg (275-300); CALCIUM 8.6 mg/dL (8.5-10.1); CARBON DIOXIDE 25.9 mmol/L (21.0-32.0); CHLORIDE - SERUM 107 mmol/L (98-107); CREATININE - SERUM 0.8 mg/dL (0.6-1.3); GLUCOSE 113 mg/dL (74-106); POTASSIUM - SERUM 3.1 mmol/L (3.5-5.1); PROTEIN - SERUM 7.5 g/dL (6.4-8.2); SODIUM 141 mmol/L (136-145); UREA NITROGEN 17 mg/dL (7-18); eGFR NON AFRICAN AMERICAN 77 mL/min (90-120)
[2018-06-13 13:08] LABS: INR 0.97 (0.85-1.17); PROTIME 12.5 SECONDS (11.6-15.0)
[2018-06-13 13:10] LABS: CKMB 0.6 U/L (0.0-3.6); CREATINE KINASE 71 UL (21-215); D-DIMER-QUANTITATIVE 0.73 ug/mLFEU (0.20-0.54); MAGNESIUM - SERUM 1.7 mg/dL (1.8-2.4)
[2018-06-13 13:11] LABS: TROPONIN-I < 0.017 ng/mL (0.000-0.060)
[2018-06-13 13:39] LABS: APPEARANCE CLEAR (CLEAR); BACTERIA FEW /hpf (NONE SEEN); BILIRUBIN NEGATIVE (NEGATIVE); COLOR YELLOW (YELLOW); EPITHELIAL CELLS 0-5 /hpf (0-5); GLUCOSE NEGATIVE (NEGATIVE); KETONE MODERATE mg/dL (NEGATIVE); NITRITE NEGATIVE (NEGATIVE); PROTEIN NEGATIVE (NEGATIVE); RED CELLS - URINE 0-5 /hpf (0-5); WHITE CELLS - URINE RARE /hpf (0-5)
[2018-06-13 13:40] LABS: MUCUS <1+ /lpf (NONE SEEN)
[2018-06-13 13:45] LABS: BASOPHILS 0.2 % (0-2); EOSINOPHILS 0.2 % (0-7); HEMATOCRIT 38.5 % (36.0-48.0); HEMOGLOBIN 13.8 g/dL (12-16); IMMATURE GRANULOCYTES 0.1 % (0-5); LYMPHOCYTES 25.8 % (15-50); MCH 31.4 pg (26.0-34.0); MCHC 35.8 g/dL (31.0-37.0); MCV 87.5 fL (80.0-100.0); MEAN PLATELET VOLUME 10.1 fL (7.4-10.4); MONOCYTES 3.3 % (2-11); NEUTROPHILS 70.4 % (40-80); PLATELET COUNT 298 10x3/uL (130-400); RDW 12.3 % (11.5-14.5); WBC 8.8 10x3/uL (4.8-10.8)
[2018-06-13] MEDS ORDERED: CHRONULAC30 ML PO (16:21)
[2018-06-13 19:24] VITALS: BP 149/100
== END 2018-06-13 19:24 | disposition home or self-care (01) ==
LOC: D.ER 12:09
PROVIDERS: Family Medicine
DX: R07.9 Chest pain, unspecified (principal); I25.10 Atherosclerotic heart disease of native coronary artery without angina pectoris; I10 Essential (primary) hypertension; E87.6 Hypokalemia; R05 Cough; R06.02 Shortness of breath; Z86.73 Personal history of transient ischemic attack (TIA), and cerebral infarction without residual deficits; Z86.11 Personal history of tuberculosis; Z85.528 Personal history of other malignant neoplasm of kidney; Z86.59 Personal history of other mental and behavioral disorders; F17.200 Nicotine dependence, unspecified, uncomplicated

== ENCOUNTER 2018-12-02 15:12 | Emergency (ER) | payer MEDICAID ==
[~2018-12-02] VITALS: Ht 177.8 cm; Wt 100.0 kg
[~2018-12-02 15:12] MED LIST changes: +CHRONULAC30 ML PO
[2018-12-02 15:26] VITALS: Ht 177.8 cm; Wt 100.0 kg
[2018-12-02 17:00] VITALS: BP 139/84
== END 2018-12-02 17:40 | disposition home or self-care (01) ==
LOC: D.ER 15:12
DX: F43.20 Adjustment disorder, unspecified (principal); Z86.59 Personal history of other mental and behavioral disorders; I10 Essential (primary) hypertension

== ENCOUNTER 2020-12-16 12:22 | Emergency (ER) | payer MEDICARE ==
[~2020-12-16] VITALS: Ht 162.6 cm; Wt 104.5 kg
[~2020-12-16 12:22] MED LIST changes: +ACETAMINOPHEN325 MG PO; +FEXOFENADINE H180 MG PO; +FLUTICASONE PRO16 GM NASAL; +FOLIC ACID1 MG PO; +LIDODERM 5 %1 PATCH TRANSDERM; +LINZESS145 MCG PO; +MAG-OX 400 MG400 MG PO; +MOBIC7.5 MG PO; +PROTONIX40 MG PO; +RISPERDAL1 MG PO; +TENORMIN50 MG PO; +VITAMIN B-121000 MCG PO; +VITAMIN D PO; +VOLTAREN100 GM TOPICAL; +ZOLOFT100 MG PO
[2020-12-16 12:23] VITALS: Ht 162.6 cm; Wt 104.5 kg
[2020-12-16] MEDS ORDERED: MOBIC7.5 MG PO (12:33)
[2020-12-16] MEDS ORDERED: NORVASC10 MG PO (12:33)
[2020-12-16] MEDS ORDERED: PROTONIX40 MG PO (12:33)
[2020-12-16] MEDS ORDERED: SINEQUAN100 MG PO (12:33)
[2020-12-16] MEDS ORDERED: PERCOCET 7.5/321 TAB PO (15:14)
== END 2020-12-16 15:40 | disposition home or self-care (01) ==
LOC: D.ER 12:22
DX: M51.26 Other intervertebral disc displacement, lumbar region (principal); M25.561 Pain in right knee; M25.562 Pain in left knee; I10 Essential (primary) hypertension; Z72.0 Tobacco use

== ENCOUNTER → 2020-12-30 10:00 | Outpatient (CLI) | payer MEDICAID ==
[2020-12-16 12:23] VITALS: BMI 39.5
[~2020-12-30 10:00] MED LIST changes: +NORVASC10 MG PO; +PERCOCET 7.5/321 TAB PO
== END | disposition home or self-care (01) ==
LOC: D.MAMMO 10:00
PROVIDERS: ATTEND Family Medicine
DX: Z12.31 Encounter for screening mammogram for malignant neoplasm of breast (principal)

== ENCOUNTER 2021-02-13 16:51 | Inpatient (IN) | payer MEDICARE, MEDICAID ==
[~2021-02-13] VITALS: Ht 162.6 cm; Wt 82.5 kg
[2021-02-13] MEDS ORDERED: ZESTRIL20 MG PO (17:17)
[2021-02-13] MEDS ORDERED: RISPERDAL1 MG PO (17:17)
[2021-02-13] MEDS ORDERED: ZOLOFT100 MG PO (17:18)
[2021-02-13 17:19] LABS: BILIRUBIN NEGATIVE (NEGATIVE); KETONE NEGATIVE (NEGATIVE); NITRITE NEGATIVE (NEGATIVE); UROBILINOGEN NORMAL mg/dL (< 2)
[2021-02-13 17:24] LABS: UDS - AMPHET POSITIVE QUAL (NEGATIVE); UDS - BARB NEGATIVE QUAL (NEGATIVE); UDS - BENZO NEGATIVE QUAL (NEGATIVE); UDS - COCAINE NEGATIVE QUAL (NEGATIVE); UDS - OPIATE NEGATIVE QUAL (NEGATIVE); UDS - PCP NEGATIVE QUAL (NEGATIVE); UDS - THC NEGATIVE QUAL (NEGATIVE)
[2021-02-13 17:27] LABS: BASOPHILS 0.4 % (0-2); HEMATOCRIT 43.8 % (36.0-48.0); HEMOGLOBIN 15.4 g/dL (12-16); LYMPHOCYTE ABS# 2.68 10x3/uL (1.18-3.74); LYMPHOCYTES 38.4 % (15-50); MCH 31.7 pg (26.0-34.0); MCHC 35.2 g/dL (31.0-37.0); MCV 90.1 fL (80.0-100.0); MEAN PLATELET VOLUME 9.4 fL (7.4-10.4); MONOCYTES 3.7 % (2-11); NEUTROPHILS 54.5 % (40-80); PLATELET COUNT 279 10x3/uL (130-400); RBC 4.86 10x6/uL (4.00-5.40); RDW 12.2 % (11.5-14.5)
[2021-02-13 17:39] LABS: CALC OSMOLALITY 280 mosm/kg (275-300); CARBON DIOXIDE 25.4 mmol/L (21.0-32.0); CHLORIDE - SERUM 104 mmol/L (98-107); CREATININE - SERUM 0.6 mg/dL (0.6-1.3); GLUCOSE 101 mg/dL (74-106); POTASSIUM - SERUM 4.3 mmol/L (3.5-5.1); SODIUM 139 mmol/L (136-145); UREA NITROGEN 22 mg/dL (7-18); eGFR NON AFRICAN AMERICAN > 90 mL/min (90-120)
[2021-02-13 17:42] LABS: APTT 25.5 SECONDS (22.8-39.4); INR 1.14 (0.85-1.17); PROTIME 13.5 SECONDS (11.6-15.0)
[2021-02-13 17:53] LABS: ALKALINE PHOSPHATASE 122 U/L (30-120); ALT (SGPT) 17 U/L (10-68); BILIRUBIN - TOTAL 0.56 mg/dL (0.2-1.3); CKMB 0.8 U/L (0.0-3.6); CREATINE KINASE 387 UL (21-215); PROTEIN - SERUM 7.3 g/dL (6.4-8.2)
[2021-02-13 18:03] LABS: ALBUMIN 3.3 g/dL (3.4-5.0); MAGNESIUM - SERUM 1.9 mg/dL (1.8-2.4)
[2021-02-13 18:23] LABS: TROPONIN-I < 0.017 ng/mL (0.000-0.060)
[2021-02-13 19:00] VITALS: BP 133/74
--- NOTE | 2021-02-13 19:00 | NUR ---
REPORT FROM RICARDO EID PT LYING IN STRECHER ON MONITOR MEDS INFUSING SEE EMAR PT C/O FEELING COLD GIVEN BLANKETS DENIES FURTHER NEEDS.
[2021-02-13 20:00] VITALS: BP 136/76
[2021-02-13 21:01] VITALS: BP 132/79
--- NOTE | 2021-02-13 21:50 | NUR ---
RECEIVED PT FROM THE ER TO ROOM 2306. ATTACHED PT TO MONITORS. PROVIDED BLANKETS AND ADJUSTED ROOM TEMP PER PT REQUEST. ADMISSION HX OBTAINED, SEE FLOWSHEET FOR DETAILS. ADMISSION ASSESSMENT COMPLETED, SEE FLOWSHEET FOR DETAILS. NO S/S OF DISTRESS. NO NEEDS VOICED. WILL CONTINUE TO MONITOR.
[2021-02-13 21:57] VITALS: BP 152/97; BMI 30.9
[2021-02-13 22:00] VITALS: BP 146/88
[2021-02-13 23:00] VITALS: BP 136/90
[2021-02-14] VITALS (11 sets, daily range): BP systolic 140–177; BP diastolic 82–97; BMI 31.2
[2021-02-14 05:49] LABS: BASOPHILS 0.3 % (0-2); EOSINOPHILS 4.5 % (0-7); HEMATOCRIT 37.4 % (36.0-48.0); HEMOGLOBIN 12.4 g/dL (12-16); IMMATURE GRANULOCYTES 0.2 % (0-5); LYMPHOCYTE ABS# 2.51 10x3/uL (1.18-3.74); LYMPHOCYTES 41.6 % (15-50); MCH 29.5 pg (26.0-34.0); MCHC 33.2 g/dL (31.0-37.0); MEAN PLATELET VOLUME 9.3 fL (7.4-10.4); MONOCYTES 5.5 % (2-11); NEUTROPHILS 47.9 % (40-80); PLATELET COUNT 306 10x3/uL (130-400); RDW 12.3 % (11.5-14.5)
[2021-02-14 06:16] LABS: ALBUMIN 2.5 g/dL (3.4-5.0); ALKALINE PHOSPHATASE 99 U/L (30-120); BILIRUBIN - TOTAL 0.37 mg/dL (0.2-1.3); CALC OSMOLALITY 284 mosm/kg (275-300); CALCIUM 8.2 mg/dL (8.5-10.1); CARBON DIOXIDE 25.6 mmol/L (21.0-32.0); CHLORIDE - SERUM 109 mmol/L (98-107); CHOLESTEROL, TOTAL 143 mg/dL (0-200); GLUCOSE 85 mg/dL (74-106); HDL CHOLESTEROL 48 mg/dL (32-96); LDL CHOLESTEROL 82 mg/dL (0-100); LDL-HDL RATIO 1.7 ratio (1.5-3.5); MAGNESIUM - SERUM 1.8 mg/dL (1.8-2.4); PHOSPHOROUS 3.1 mg/dL (2.5-4.9); POTASSIUM - SERUM 3.9 mmol/L (3.5-5.1); PROTEIN - SERUM 6.2 g/dL (6.4-8.2); SODIUM 142 mmol/L (136-145); T4 THYROXIN - FREE 1.21 ng/dL (0.76-1.46); TRIGLYCERIDE 68 mg/dL (30-200); UREA NITROGEN 21 mg/dL (7-18)
[2021-02-14 06:17] LABS: ALT (SGPT) 22 U/L (10-68); CREATININE - SERUM 0.8 mg/dL (0.6-1.3); eGFR NON AFRICAN AMERICAN 76 mL/min (90-120)
--- NOTE | 2021-02-14 06:53 | NUR ---
REPORT RECEIVED. ASSESSMENT COMPLETE PER FLOW SHEET. VSS. PT STATES HAS HEADACHE 4/10 DENIES NEEDS REQUESTS TO SLEEP. NEEDS MET.
--- NOTE | 2021-02-14 08:13 | NUR ---
PATIENT DC TO ICU WILL NEED NEW ORDERS TO WORK WITH PATIENT
--- NOTE | 2021-02-14 08:19 | NUR ---
REHAB PRESCREEN ORDER RECEIVED. UNFORTUNATELY THIS PATIENT'S PRIMARY INSURANCE IS MEDICAID AND WE ARE UNABLE TO ACCEPT THIS INSURANCE. THANK YOU FOR THE REFERRAL. LILIA HESS RN CLINICAL LIAISON, INPATIENT REHAB.
--- NOTE | 2021-02-14 08:48 | NUR ---
BENY ROBB AT BEDSIDE GIVEN UPDATE.
--- NOTE | 2021-02-14 18:10 | NUR ---
PT ARRIVED FROM ICU AT THIS TIME, AMBULATED WITH STANDBY ASSISTANCE TO BED. RR EVEN NON LABORED ON ROOM AIR. NO PAIN VOICED, PT REQUESTED WARM BLANKET AND COKE. NO FURTHER NEEDS VOICED, CLWR.
--- NOTE | 2021-02-14 18:50 | NUR ---
pt seen lying in bed, awake, alert. denies any issues. will contiue to monitor
[2021-02-15 06:42] LABS: BASOPHILS 0.4 % (0-2); EOSINOPHILS 5.8 % (0-7); HEMATOCRIT 36.9 % (36.0-48.0); HEMOGLOBIN 12.3 g/dL (12-16); LYMPHOCYTES 46.8 % (15-50); MCH 29.4 pg (26.0-34.0); MCHC 33.3 g/dL (31.0-37.0); MCV 88.3 fL (80.0-100.0); MEAN PLATELET VOLUME 9.5 fL (7.4-10.4); MONOCYTES 6.5 % (2-11); NEUTROPHIL ABS# 2.26 10x3/uL (1.56-6.13); NEUTROPHILS 40.5 % (40-80); PLATELET COUNT 340 10x3/uL (130-400); RBC 4.18 10x6/uL (4.00-5.40); RDW 12.1 % (11.5-14.5); WBC 5.6 10x3/uL (4.8-10.8)
[2021-02-15 07:41] LABS: CALC OSMOLALITY 283 mosm/kg (275-300); CALCIUM 8.7 mg/dL (8.5-10.1); CARBON DIOXIDE 26.8 mmol/L (21.0-32.0); CHLORIDE - SERUM 108 mmol/L (98-107); CREATININE - SERUM 0.7 mg/dL (0.6-1.3); GLUCOSE 88 mg/dL (74-106); MAGNESIUM - SERUM 1.9 mg/dL (1.8-2.4); SODIUM 143 mmol/L (136-145); UREA NITROGEN 13 mg/dL (7-18); eGFR NON AFRICAN AMERICAN 89 mL/min (90-120)
[2021-02-15 08:14] LABS: T3 - FREE 3.7 pg/mL (2.0-4.4)
[2021-02-15 08:40] VITALS: Ht 162.6 cm; Wt 82.5 kg
--- NOTE | 2021-02-15 09:08 | NUR ---
AM MEDS GIVEN WITH FRESH COKE PER REQUEST. PT RR EVEN NON LABORED, AWAKE AND ALERT , NO FURTHER NEEDS VOICED. CLWR.
[2021-02-15 09:12] LABS: THYROGLOBULIN ANTIBODY <1.0 IU/mL (0.0-0.9); THYROID PEROXIDASE ABS <9 IU/mL (0-34)
--- NOTE | 2021-02-15 12:47 | NUR ---
DC INSTRUCTIONS GIVEN TO PT AT THIS TIME, PT STATES UNDERSTANDING, DENIES ANY QUESTIONS. IV REMOVED, CATHETER INTACT, DRESSING APPLIED. PT CALLED [facility] FOR TRANSPORTATION HOME. NO FURTHER NEEDS VOICED. ALL BELONGINGS PACKED TO LEAVE.
--- NOTE | 2021-02-15 12:55 | NUR ---
PT WHEELED TO FRONT EXIT WITH ALL BELONGINGS, PT CALLED [facility] FOR TRANSPORT. NO DISTRESS NOTED ON DEPARTURE.
== END 2021-02-15 12:55 | disposition home or self-care (01) | DRG 643 ==
LOC: D.ER 16:51 → D.MS 20:03 → OBSVTIME 20:03 → D.MS 20:03 → D.ICU 20:05 → D.EDHOLD 21:08 → D.ICU 21:11 → D.M2 02-14 18:01
PROVIDERS: Family Medicine; ADMIT Emergency Medicine; ATTEND Emergency Medicine
DX: D44.4 Neoplasm of uncertain behavior of craniopharyngeal duct (principal); G93.41 Metabolic encephalopathy; F17.203 Nicotine dependence unspecified, with withdrawal; E05.90 Thyrotoxicosis, unspecified without thyrotoxic crisis or storm; F31.9 Bipolar disorder, unspecified; I10 Essential (primary) hypertension; F15.90 Other stimulant use, unspecified, uncomplicated; Z86.73 Personal history of transient ischemic attack (TIA), and cerebral infarction without residual deficits